=== PATIENT | female | born 1975 | race Caucasian/White ===

== ENCOUNTER 2021-01-28 20:08 | Emergency (ER) | payer MEDICAID ==
[~2021-01-28] VITALS: Ht 162.6 cm; Wt 72.7 kg
[2021-01-28 20:39] LABS: COVID AG,FIA SOURCE NASOPHARYNGEAL
[2021-01-28 21:06] LABS: RAPID GROUP A STREP NEGATIVE (NEGATIVE)
[2021-01-28 21:42] VITALS: BP 123/86
== END 2021-01-28 22:21 | disposition left against medical advice (07) ==
LOC: EMS 20:08
DX: J02.9 Acute pharyngitis, unspecified (principal); Z20.822 Contact with and (suspected) exposure to COVID-19; Z53.21 Procedure and treatment not carried out due to patient leaving prior to being seen by health care provider
CPT/HCPCS: 87430